=== PATIENT | male | born 1975 | race African-American/Black ===

== ENCOUNTER 2018-08-22 18:20 | Emergency (ER) | payer BC ==
[2018-08-22 18:36] VITALS: BP 118/60
--- NOTE | 2018-08-22 18:46 | ED ---
Abdominal Pain/Male - HPI Summary HPI Summary: 42 yr old male with the complaint of low anterior wall abdominal pain. Onset of pain yesterday. Onset when he was doing lifts with weights. he felt his low abdomen muscles go into spasm. He had 10/10 cramps then. Now he has 6/ 10 pain if he moves the right way. He denies change in bowel or bladder. No swelling to the anterior abdomen. He has had umbilical hernia repair. He does not feel and return of the abdominal wall defect he had repaired. Denies testicular pain, swelling, inguinal swelling. - History of Current Complaint Chief Complaint: UCAbdominalPain Stated Complaint: LOWER ABDOMINAL PAIN Time Seen by Provider: 08/22/18 18:38 Pain Intensity: 6 - Allergies/Home Medications Allergies/Adverse Reactions: Allergies Allergy/AdvReac Type Severity Reaction Status Date / Time No Known Allergies Allergy Verified 08/22/18 18:36 Home Medications: Home Medications NK [No Home Medications Reported] 08/22/18 [History Confirmed 08/22/18] PMH/Surg Hx/FS Hx/Imm Hx - Surgical History Surgery Procedure, Year, and Place: vasectomy. hernia 10/2017 Infectious Disease History: No Infectious Disease History: Denies: Traveled Outside the [place] in Last 30 Days - Family History Known Family History: Positive: None - Social History Occupation: Employed Full-time Alcohol Use: None Substance Use Type: Reports: None Smoking Status (MU): Never Smoked Tobacco Review of Systems Constitutional: Negative Positive: Other - abdominal wall pain, rectus abdominus All Other Systems Reviewed And Are Negative: Yes Physical Exam Triage Information Reviewed: Yes Vital Signs On Initial Exam: Initial Vitals Temp Pulse Resp BP Pulse Ox 98.3 F 69 16 118/60 100 08/22/18 18:32 08/22/18 18:32 08/22/18 18:32 08/22/18 18:32 08/22/18 18:32 Vital Signs Reviewed: Yes Appearance: Positive: Well-Appearing, No Pain Distress Skin: Positive: Warm, Skin Color Reflects Adequate Perfusion Head/Face: Positive: Normal Head/Face Inspection Eyes: Positive: EOMI ENT: Positive: Normal ENT inspection Neck: Positive: Nontender Respiratory/Lung Sounds: Positive: Clear to Auscultation, Breath Sounds Present Cardiovascular: Positive: RRR. Negative: Murmur Abdomen Description: Positive: Other: - no ventral hernia appreciated. He has some tenderness over the rectus abdominus muscle anteriorly in lower abdomen.. Negative: Distended, Guarding Musculoskeletal: Positive: Strength/ROM Intact Neurological: Positive: Sensory/Motor Intact, Alert, Oriented to Person Place, Time, CN Intact II-III, Normal Gait, Speech Normal Psychiatric: Positive: Normal Diagnostics - Vital Signs Vital Signs Temp Pulse Resp BP Pulse Ox 08/22/18 18:32 98.3 F 69 16 118/60 100 - Laboratory Lab Statement: Any lab studies that have been ordered have been reviewed, and results considered in the medical decision making process. Abdominal Pain Fem Course/Dx - Course Course Of Treatment: 42 yr old male with abdominal wall strain. DC home. FU with his general surgeon. note for work given . - Diagnoses Provider Diagnoses: Strain of abdominal wall Discharge - Sign-Out/Discharge Documenting (check all that apply): Patient Departure All imaging exams completed and their final reports reviewed: No Studies - Discharge Plan Condition: Good Disposition: HOME Patient Education Materials: Muscle Strain (ED) Forms: *Work Release Referrals: Alejandra Dinh MD [Primary Care Provider] - 2 Days - Billing Disposition and Condition Condition: GOOD Disposition: Home
== END 2018-08-22 18:54 | disposition home or self-care (01) ==
LOC: UCCORT 18:20
DX: S39.011A Strain of muscle, fascia and tendon of abdomen, initial encounter (principal); X58.XXXA Exposure to other specified factors, initial encounter; Y93.79 Activity, other specified sports and athletics; Y92.9 Unspecified place or not applicable
CPT/HCPCS: 99201; G0463

== ENCOUNTER 2019-04-25 21:18 | Emergency (ER) | payer BC ==
[2019-04-25 21:33] VITALS: BP 131/55
--- NOTE | 2019-04-25 21:49 | ED ---
Back Pain - HPI Summary HPI Summary: 43 yr old male with the complaint of low back pain, tightness. Onset of symptoms last evening. he went to the gym and was lifting weights and doing lifts. he states that this morning his low back was all tight and in spasm. Denies bowel or bladder incontinence. Denies weakness or numbness in the legs. No change in gait. He has prior low back pain of the same nature in the past and he usually does this a couple times a year when he tries to parsons through a work out. - History of Current Complaint Chief Complaint: UCBackPain Stated Complaint: LOW BACK PAIN Time Seen by Provider: 04/25/19 21:40 Pain Intensity: 7 - Allergies/Home Medications Allergies/Adverse Reactions: Allergies Allergy/AdvReac Type Severity Reaction Status Date / Time No Known Allergies Allergy Verified 04/25/19 21:33 PMH/Surg Hx/FS Hx/Imm Hx - Surgical History Surgery Procedure, Year, and Place: vasectomy. hernia 10/2017 Infectious Disease History: No Infectious Disease History: Denies: Traveled Outside the [place] in Last 30 Days - Family History Known Family History: Positive: None - Social History Occupation: Employed Full-time Alcohol Use: Rare Substance Use Type: Reports: None Smoking Status (MU): Never Smoked Tobacco Review of Systems Constitutional: Negative Positive: Other - back pain All Other Systems Reviewed And Are Negative: Yes Physical Exam Triage Information Reviewed: Yes Vital Signs On Initial Exam: Initial Vitals Temp Pulse Resp BP Pulse Ox 98.6 F 63 15 131/55 99 04/25/19 21:29 04/25/19 21:29 04/25/19 21:29 04/25/19 21:29 04/25/19 21:29 Vital Signs Reviewed: Yes Appearance: Positive: Well-Appearing, No Pain Distress Skin: Positive: Warm, Skin Color Reflects Adequate Perfusion Head/Face: Positive: Normal Head/Face Inspection Eyes: Positive: EOMI, EDGARD ENT: Positive: Normal ENT inspection Neck: Positive: Nontender Respiratory/Lung Sounds: Positive: Clear to Auscultation, Breath Sounds Present Cardiovascular: Positive: RRR. Negative: Murmur Abdomen Description: Positive: Nontender. Negative: Distended Musculoskeletal: Positive: Strength/ROM Intact, Other - minor para spinal lumbar tenderness. Neurological: Positive: Sensory/Motor Intact, Alert, Oriented to Person Place, Time, CN Intact II-III, Normal Gait, Speech Normal Psychiatric: Positive: Normal Diagnostics - Vital Signs Vital Signs Temp Pulse Resp BP Pulse Ox 04/25/19 21:29 98.6 F 63 15 131/55 99 - Laboratory Lab Statement: Any lab studies that have been ordered have been reviewed, and results considered in the medical decision making process. Back Pain Course/Dx - Course Course Of Treatment: 43 yr old with low back strain. DC home Motrin script. - Diagnoses Provider Diagnoses: Lumbar strain Discharge - Sign-Out/Discharge Documenting (check all that apply): Patient Departure All imaging exams completed and their final reports reviewed: No Studies - Discharge Plan Condition: Good Disposition: HOME Prescriptions: Ibuprofen 800 mg PO TID #20 tablet Patient Education Materials: Low Back Strain (ED) Forms: *Work Release Referrals: Alejandra Dinh MD [Primary Care Provider] - 2 Days - Billing Disposition and Condition Condition: GOOD Disposition: Home
== END 2019-04-25 21:51 | disposition home or self-care (01) ==
LOC: UCCORT 21:18
DX: S39.012A Strain of muscle, fascia and tendon of lower back, initial encounter (principal); X58.XXXA Exposure to other specified factors, initial encounter; Y93.B3 Activity, free weights; Y92.89 Other specified places as the place of occurrence of the external cause
CPT/HCPCS: 99212; G0463

== ENCOUNTER 2019-06-05 09:14 | Emergency (ER) | payer BC ==
[2019-06-05 10:15] VITALS: BP 108/49
--- NOTE | 2019-06-05 10:28 | UC ---
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 On Wednesday he was lifting weights and he squatted when he felt a pull in his right thigh. He has had this type of injury before and he states it gets better with rest and limited weightbearing and ibuprofen. He is ambulatory without difficulty. He is here because he needs a note for work. He states last time this happened he was out of work for one week. - History Of Current Complaint Chief Complaint: UCLowerExtremity Stated Complaint: RT THIGH INJURY Time Seen by Provider: 06/05/19 10:28 Hx Obtained From: Patient Onset/Duration: Sudden Onset Timing: Intermittent Episodes Lasting: - Episodes of pain only last intermittently when he is lifting his leg. Severity Initially: Mild Severity Currently: Mild Pain Intensity: 6 Location: Diffuse - Patient points to the right anterior upper thigh. Character Of Pain: Dull, Aching Aggravating Factor(s): Movement Alleviating Factor(s): Rest Associated Signs And Symptoms: Positive: Negative - Allergies/Home Medications Allergies/Adverse Reactions: Allergies Allergy/AdvReac Type Severity Reaction Status Date / Time No Known Allergies Allergy Verified 06/05/19 10:15 PMH/Surg Hx/FS Hx/Imm Hx Previously Healthy: Yes - Surgical History Surgical History: Yes Surgery Procedure, Year, and Place: vasectomy. hernia 10/2017 - Family History Known Family History: Positive: None - Social History Occupation: Employed Full-time Alcohol Use: None Substance Use Type: None Smoking Status (MU): Never Smoked Tobacco Review of Systems All Other Systems Reviewed And Are Negative: Yes Is Patient Immunocompromised?: No Physical Exam Triage Information Reviewed: Yes Appearance: Well-Appearing, No Pain Distress, Well-Nourished Vital Signs: Initial Vital Signs Temp 97.9 F 06/05/19 10:07 Pulse 69 06/05/19 10:07 Resp 16 06/05/19 10:07 BP 108/49 06/05/19 10:07 Pulse Ox 99 06/05/19 10:07 Vital Signs Reviewed: Yes Musculoskeletal: Positive: Strength Intact, ROM Intact, No Edema, Other: - No bruising, erythema, deformity or swelling. Patient ambulates well in the room. He has full range of motion and good leg strength against resistance. Neurological: Positive: Alert, Muscle Tone Normal Psychological Exam: Normal Skin Exam: Normal Hip Injury Course/Dx - Course Course Of Treatment: The patient states that he needs time off work to help this heal. I gave him off until Wednesday and he can continue applying heat to the area or ice and take ibuprofen for pain but definite follow up with his primary care provider if no improvement by Wednesday. - Differential Dx/Diagnosis Provider Diagnosis: Strain of hip and thigh Discharge ED - Sign-Out/Discharge Documenting (check all that apply): Patient Departure All imaging exams completed and their final reports reviewed: No Studies - Discharge Plan Condition: Good Disposition: HOME Patient Education Materials: Muscle Strain (DC) Forms: *Work Release Referrals: Alejandra Dinh MD [Primary Care Provider] - Additional Instructions: Avoid movements that cause pain, may apply heat to the sore area. May take Tylenol every 4 hours or Motrin every 8 hours for pain. - Billing Disposition and Condition Condition: GOOD Disposition: Home - Attestation Statements Provider Attestation: Per institutional requirements, I have reviewed the chart, however, I was not consulted specifically or made aware of this patient by the midlevel provider. I did not personally evaluate, interact with , or disposition this patient.
== END 2019-06-05 10:42 | disposition home or self-care (01) ==
LOC: UCCORT 09:14
DX: S76.019A Strain of muscle, fascia and tendon of unspecified hip, initial encounter (principal); S76.911A Strain of unspecified muscles, fascia and tendons at thigh level, right thigh, initial encounter; X50.0XXA Overexertion from strenuous movement or load, initial encounter; Y93.B3 Activity, free weights; Y92.9 Unspecified place or not applicable
CPT/HCPCS: 99211; G0463